=== PATIENT | male | born 1990 | race Caucasian/White ===

== ENCOUNTER 2021-04-22 11:42 | Emergency (ER) | payer BC ==
[2021-04-22] MEDS ORDERED: HYDROmorphone 1 MG/ML Syringe IVPUSH ONE (11:57)
[2021-04-22] MEDS ORDERED: Ketorolac 30 MG/ML SDV IVPUSH ONE (11:57)
[2021-04-22] MEDS ORDERED: Lactated Ringers 1,000 ML IV ONE (11:57)
[2021-04-22] MEDS ORDERED: Ondansetron 4 MG/2 ML SDV IVPUSH ONE (11:58)
--- NOTE | 2021-04-22 12:05 | EDM.PDOC ---
ED HPI GENERAL MEDICAL PROBLEM - General Chief Complaint: Abdominal Pain Stated Complaint: SEVERE ABD PAIN Time Seen by Provider: 04/22/21 11:50 Source of Information: Reports: Patient. Denies: Old Records History Limitations: Reports: Other (no old records) - History of Present Illness INITIAL COMMENTS - FREE TEXT/NARRATIVE: 30 yo male from [facility] presents with L sided abdominal pain that began earlier today. Pain is constant, but does get worse at times. He has been diaphoretic with the pain but does not have fever or nausea. No hx of the same. No prior surgeries. Tried unsuccessfully before arrival to have a BM or void. Onset: Today, Sudden Onset Date: 04/22/21 Duration: Hour(s): (2), Waxing/Waning Location: Reports: Abdomen Quality: Reports: Ache Severity: Severe Improves with: Reports: None Worsens with: Reports: Other (unsure) Context: Reports: Other (See HPI) Associated Symptoms: Reports: Diaphoresis. Denies: Fever/Chills, Nausea/Vomiting Treatments [employer] AP[employer]ENTICE: Reports: Other (see below) (none) - Related Data Allergies Allergy/AdvReac Type Severity Reaction Status Date / Time No Known Allergies Allergy Verified 04/22/21 12:13 Home Meds: Home Meds NK [No Known Home Meds] 04/22/21 [History] Past Medical History - Past Health History Medical/Surgical History: Denies Medical/Surgical History Other Neuro History: spinal meningitis Social & Family History - Family History Family Medical History: Unobtainable - Caffeine Use Caffeine Use: Reports: Coffee, Soda ED ROS GENERAL - Review of Systems Review Of Systems: See Below Constitutional: Reports: Diaphoresis HEENT: Reports: No Symptoms Respiratory: Reports: No Symptoms Cardiovascular: Reports: No Symptoms Endocrine: Reports: No Symptoms GI/Abdominal: Reports: Abdominal Pain. Denies: Black Stool, Bloody Stool, Constipation, Diarrhea, Hematemesis, Hematochezia, Melena, Nausea : Reports: No Symptoms. Denies: Hematuria Musculoskeletal: Reports: No Symptoms Skin: Reports: Diaphoresis Neurological: Reports: No Symptoms ED EXAM, GI/ABD - Physical Exam Exam: See Below Exam Limited By: No Limitations General Appearance: Alert, WD/WN, No Apparent Distress Eyes: Bilateral: Normal Appearance Ears: Normal External Exam, Normal Canal, Hearing Grossly Normal, Normal TMs Nose: Normal Inspection, No Blood Throat/Mouth: Normal Inspection, Normal Lips, Normal Voice, No Airway Compromise Head: Atraumatic, Normocephalic Neck: Normal Inspection Respiratory/Chest: No Respiratory Distress, Lungs Clear, Normal Breath Sounds, No Accessory Muscle Use Cardiovascular: Regular Rate, Rhythm, No Edema GI/Abdominal Exam: Soft, Non-Tender, No Distention, Abnormal Bowel Sounds (decreased). No: Distended, Guarding, Rigid, Rebound, Tender, Hernia Back Exam: Normal Inspection. No: CVA Tenderness (R), CVA Tenderness (L) Extremities: Normal Inspection, Normal Range of Motion, Non-Tender, No Pedal Edema Neurological: Alert, Oriented, CN II-XII Intact, Normal Cognition, No Motor/Sensory Deficits Psychiatric: Normal Affect, Normal Mood Skin Exam: Warm, Intact, Normal Color, No Rash, Diaphoretic Course - Vital Signs Last Recorded V/S: Last Vital Signs Temp 36.4 C 04/22/21 12:19 Pulse 63 04/22/21 13:00 Resp 12 04/22/21 13:00 BP 123/67 04/22/21 13:00 Pulse Ox 99 04/22/21 13:00 - Orders/Labs/Meds Labs: Laboratory Tests 04/22/21 Range/Units 14:14 Urine Color Yellow (YELLOW) Urine Appearance Clear (CLEAR) Urine pH 7.0 (5.0-8.0) Ur Specific [place] >= 1.030 (1.008-1.030) Urine Protein 30 H (NEGATIVE) mg/dL Urine Glucose (UA) Negative (NEGATIVE) mg/dL Urine Ketones Negative (NEGATIVE) mg/dL Urine Occult Blood Moderate H (NEGATIVE) Urine Nitrite Negative (NEGATIVE) Urine Bilirubin Negative (NEGATIVE) Urine Urobilinogen 0.2 (0.2-1.0) EU/dL Ur Leukocyte Esterase Negative (NEGATIVE) Urine RBC 10-20 H (0-5) Urine WBC 0-5 (0-5) Ur Epithelial Cells Not seen Amorphous Sediment Occasional Urine Bacteria Occasional Urine Mucus Numerous Meds: Medications Discontinued Medications Generic Name Dose Route Start Last Admin Trade Name Freq PRN Reason Stop Dose Admin Hydromorphone HCl 1 mg 04/22/21 11:57 04/22/21 12:09 Hydromorphone 1 Mg/Ml Syringe IVPUSH 04/22/21 11:58 1 mg ONETIME ONE Administration Hydromorphone HCl 0.5 mg 04/22/21 13:50 04/22/21 13:57 Hydromorphone 0.5 Mg/0.5 Ml Syringe IVPUSH 04/22/21 13:51 0.5 mg ONETIME ONE Administration Lactated Ringer's 1,000 mls @ 1,000 mls/hr 04/22/21 11:57 04/22/21 12:08 Ringers, Lactated IV 04/22/21 12:56 1,000 mls/hr BOLUS ONE Administration Ketorolac Tromethamine 30 mg 04/22/21 11:57 04/22/21 12:11 Ketorolac 30 Mg/Ml Sdv IVPUSH 04/22/21 11:58 30 mg ONETIME ONE Administration Ondansetron HCl 4 mg 04/22/21 11:58 04/22/21 12:10 Ondansetron 4 Mg/2 Ml Sdv IVPUSH 04/22/21 11:59 4 mg ONETIME ONE Administration - Re-Assessments/Exams Free Text/Narrative Re-Assessment/Exam: 04/22/21 13:24 Is feeling much better after Toradol/Dilaudid. Abd is totally benign on exam now. Free Text/Narrative Re-Assessment/Exam: 04/22/21 14:34 Still feeling pretty well, wants to pass on the CT for now. Departure - Departure Time of Disposition: 14:45 Disposition: Home, Self-Care 01 Condition: Fair Clinical Impression: Renal calculus, left - Discharge Information *PRESCRIPTION DRUG MONITORING PROGRAM REVIEWED*: No *COPY OF PRESCRIPTION DRUG MONITORING REPORT IN PATIENT KAY: No Instructions: Kidney Stones, [id number] Referrals: PCP,None [Primary Care Provider] - Forms: ED Department Discharge Additional Instructions: Drink enough fluids so that your urine is always light yellow in color. Strain your urine to attempt to catch your stone for possible future testing. Take Aleve 2 every 8 hrs for pain relief starting after 6 pm today. Take Zofran as needed for nausea control. Add Percocet for added pain relief. Recheck if you haven't passed the stone by midweek or if you become febrile or if your pain is not adequately controlled. Sepsis Event Note (ED) - Focused Exam Vital Signs: Vital Signs Temp Pulse Resp BP Pulse Ox 04/22/21 13:00 63 12 123/67 99 04/22/21 12:19 36.4 C 72 25 H 136/88 99 04/22/21 12:01 36.4 C 72 25 H 136/88 99
[2021-04-22] MEDS ORDERED: HYDROmorphone 0.5 MG/0.5 ML Syringe IVPUSH ONE (13:50)
[2021-04-22 14:34] VITALS: BP 132/82; PULSE 69
== END 2021-04-22 14:48 | disposition home or self-care (01) ==
LOC: JP.ED 11:42
DX: N20.0 Calculus of kidney (principal)
CPT/HCPCS: 81001; 96374; 96375; 96376; 99284; J1170; J1885; J2405; J7120